=== PATIENT | female | born 1990 | race Caucasian/White ===

== ENCOUNTER 2018-11-13 12:15 | Emergency (ER) | payer SELFPAY ==
[2018-11-13] MEDS ORDERED: Ondansetron 4 MG Tab.DIS PO ONE (12:28)
[2018-11-13] MEDS ORDERED: Ketorolac 60 MG/2 ML SDV IM ONE (12:28)
[2018-11-13] MEDS ORDERED: Albuterol/Ipratropium 3.0-0.5 MG/3 ML Neb Soln NEB ONE (12:29)
[2018-11-13] MEDS ORDERED: Ketorolac 30 MG/ML SDV ONE (12:36)
--- NOTE | 2018-11-13 13:16 | EDM.PDOC ---
ED HPI GENERAL MEDICAL PROBLEM - General Chief Complaint: Gastrointestinal Problem Stated Complaint: STOMACH PAIN Time Seen by Provider: 11/13/18 12:20 Source of Information: Reports: Patient History Limitations: Reports: No Limitations - History of Present Illness INITIAL COMMENTS - FREE TEXT/NARRATIVE: History of present illness: []Patient has had vomiting, diarrhea, cough shortness of breath for 5 days. She states she has been having fevers, chills and sweats. She had symptoms are improving but she still feels bad. Review of systems: As per history of present illness and below otherwise all systems reviewed and negative. Past medical history: As per history of present illness and as reviewed below otherwise noncontributory. Surgical history: As per history of present illness and as reviewed below otherwise noncontributory. Social history: No reported history of drug or alcohol abuse. Family history: As per history of present illness and as reviewed below otherwise noncontributory. Physical exam: General: Well developed, well nourished in NAD HEENT: Atraumatic, normocephalic, pupils reactive, negative for conjunctival pallor or scleral icterus, mucous membranes moist, throat clear, neck supple, nontender, trachea midline. Lungs: Clear to auscultation, breath sounds equal bilaterally, chest nontender. Heart: S1S2, regular, negative for clicks, rubs, or JVD. Abdomen: NABS, Soft, nondistended, nontender. Negative for masses or hepatosplenomegaly. Negative for costovertebral tenderness. Pelvis: Stable nontender. Genitourinary: Deferred. Rectal: Deferred. Extremities: Atraumatic, negative for cords or calf pain. Neurovascular unremarkable. Neuro: Awake, alert, oriented. Cranial nerves II through XII unremarkable. Cerebellum unremarkable. Motor and sensory unremarkable throughout. Exam nonfocal. Skin:warm and dry Diagnostics: CBC, chemistry, chest x-ray, test Therapeutics: DuoNeb Toradol ED Course: Proved Impression: Acute bronchitis Prescriptions: DuoNeb, amoxicillin, Zofran Plan: Take meds as directed, follow up with your primary care physician, return to ER if symptoms worsen or change. Definitive disposition and diagnosis as appropriate pending reevaluation and review of above. Abdominal Pain Score (Numeric/FACES): 4 - Related Data Allergies Allergy/AdvReac Type Severity Reaction Status Date / Time No Known Allergies Allergy Verified 11/13/18 12:21 Home Meds: Home Meds ALPRAZolam [Xanax] 1 tab PO QID PRN 11/13/18 [History] Albuterol [Ventolin HFA] 2 puff INH Q4HR PRN #1 inhaler 11/13/18 [Rx] Amoxicillin 500 mg PO TID #21 capsule 11/13/18 [Rx] Budesonide/Formoterol [Symbicort 160-4.5 MCG] 1 puff INH BID 11/13/18 [History] Levothyroxine 1 tab PO DAILY 11/13/18 [History] Lurasidone HCl [Latuda] 1 tab PO DAILY 11/13/18 [History] Ondansetron HCl [Zofran] 4 mg PO Q4HR #12 tablet 11/13/18 [Rx] Zolpidem Tartrate [Ambien] 1 tab PO BEDTIME PRN 11/13/18 [History] Past Medical History Respiratory History: Reports: Bronchitis, Recurrent Psychiatric History: Reports: Anxiety, Bipolar, Depression Endocrine/Metabolic History: Reports: Hypothyroidism - Infectious Disease History Infectious Disease History: Reports: Chicken Pox Social & Family History - Tobacco Use Smoking Status *Q: Current Every Day Smoker Years of Tobacco use: 5 Packs/Tins Daily: 1 - Recreational Drug Use Recreational Drug Use: Yes Recreational Drug Type: Reports: Marijuana/Hashish Other Recreational Drug Type: has not used in about one month ED ROS GENERAL - Review of Systems Review Of Systems: See Below ED EXAM, GENERAL - Physical Exam Exam: See Below Course - Vital Signs Last Recorded V/S: Last Vital Signs Temp 96.7 F 11/13/18 12:18 Pulse 97 11/13/18 12:18 Resp 20 11/13/18 12:18 BP 133/94 H 11/13/18 12:18 Pulse Ox 98 11/13/18 12:18 - Orders/Labs/Meds Orders: Active Orders 24 hr Category Date Time Status RT Aerosol Therapy [RC] ASDIRECTED Care 11/13/18 12:30 Active Chest 1V Frontal [CR] Stat Exams 11/13/18 12:28 Taken Labs: Laboratory Tests 11/13/18 11/13/18 11/13/18 Range/Units 12:46 12:46 12:46 WBC 10.38 (4.0-11.0) K/uL RBC 5.55 (4.30-5.90) M/uL Hgb 15.1 (12.0-16.0) g/dL Hct 44.9 (36.0-46.0) % MCV 80.9 (80.0-98.0) fL MCH 27.2 (27.0-32.0) pg MCHC 33.6 (31.0-37.0) g/dL RDW Std Deviation 43.5 (28.0-62.0) fl RDW Coeff of Amol 15 (11.0-15.0) % Plt Count 244 (150-400) K/uL MPV 10.10 (7.40-12.00) fL Neut % (Auto) 69.7 (48.0-80.0) % Lymph % (Auto) 20.0 (16.0-40.0) % [place] % (Auto) 9.1 (0.0-15.0) % Eos % (Auto) 1.1 (0.0-7.0) % Baso % (Auto) 0.1 (0.0-1.5) % Neut # (Auto) 7.2 H (1.4-5.7) K/uL Lymph # (Auto) 2.1 (0.6-2.4) K/uL [place] # (Auto) 0.9 H (0.0-0.8) K/uL Eos # (Auto) 0.1 (0.0-0.7) K/uL Baso # (Auto) 0.0 (0.0-0.1) K/uL Nucleated RBC % 0.0 /100WBC Nucleated RBCs # 0 K/uL Sodium 138 (136-145) mmol/L Potassium 3.7 (3.5-5.1) mmol/L Chloride 103 (98-107) mmol/L Carbon Dioxide 21.6 (21.0-32.0) mmol/L BUN 5 L (7.0-18.0) mg/dL Creatinine 0.6 (0.6-1.0) mg/dL Est Cr Clr Drug Dosing 128.98 mL/min Estimated GFR (MDRD) > 60.0 ml/min Glucose 112 H (74-106) mg/dL Calcium 9.2 (8.5-10.1) mg/dL Total Bilirubin 0.5 (0.2-1.0) mg/dL AST 16 (15-37) IU/L ALT 40 (14-63) IU/L Alkaline Phosphatase 75 (46-116) U/L Total Protein 8.3 H (6.4-8.2) g/dL Albumin 4.0 (3.4-5.0) g/dL Globulin 4.3 H (2.6-4.0) g/dL Albumin/Globulin Ratio 0.9 (0.9-1.6) HCG, Qual NEGATIVE (NEG) Meds: Medications Discontinued Medications Generic Name Dose Route Start Last Admin Trade Name Freq PRN Reason Stop Dose Admin Albuterol/Ipratropium 3 ml 11/13/18 12:29 11/13/18 12:54 Duoneb 3.0-0.5 Mg/3 Ml NEB 11/13/18 12:30 3 ml ONETIME ONE Administration Ketorolac Tromethamine 60 mg 11/13/18 12:28 11/13/18 12:38 Toradol IM 11/13/18 12:29 60 mg ONETIME ONE Administration Ketorolac Tromethamine Confirm 11/13/18 12:36 11/13/18 12:47 Toradol Administered 11/13/18 12:37 30 mg Dose Administration 30 mg .ROUTE .STK-MED ONE Ondansetron HCl 4 mg 11/13/18 12:28 11/13/18 12:39 Zofran Odt PO 11/13/18 12:29 4 mg ONETIME ONE Administration Departure - Departure Time of Disposition: 13:16 Disposition: Home, Self-Care 01 Condition: Good Clinical Impression: Acute bronchitis Qualifiers: Bronchitis organism: unspecified organism Qualified Code(s): J20.9 - Acute bronchitis, unspecified - Discharge Information *PRESCRIPTION DRUG MONITORING PROGRAM REVIEWED*: No *COPY OF PRESCRIPTION DRUG MONITORING REPORT IN PATIENT JEANNINE: No Prescriptions: Albuterol [Ventolin HFA] 2 puff INH Q4HR PRN #1 inhaler PRN Reason: Shortness Of Breath Ondansetron HCl [Zofran] 4 mg PO Q4HR #12 tablet Amoxicillin 500 mg PO TID #21 capsule Referrals: PCP,Unknown [Primary Care Provider] - Forms: ED Department Discharge Additional Instructions: The following information is given to patients seen in the emergency department who are being discharged to home. This information is to outline your options for follow-up care. We provide all patients seen in our emergency department with a follow-up referral. The need for follow-up, as well as the timing and circumstances, are variable depending upon the specifics of your emergency department visit. If you don't have a primary care physician on staff, we will provide you with a referral. We always advise you to contact your personal physician following an emergency department visit to inform them of the circumstance of the visit and for follow-up with them and/or the need for any referrals to a consulting specialist. The emergency department will also refer you to a specialist when appropriate. This referral assures that you have the opportunity for follow-up care with a specialist. All of these measure are taken in an effort to provide you with optimal care, which includes your follow-up. Under all circumstances we always encourage you to contact your private physician who remains a resource for coordinating your care. When calling for follow-up care, please make the office aware that this follow-up is from your recent emergency room visit. If for any reason you are refused follow-up, please contact the [facility] Emergency Department at and asked to speak to the emergency department charge nurse. Take meds as directed, follow up with your primary care physician, return to ER if symptoms worsen or change. [facility] [address] [place] [id number] - My Orders Last 24 Hours: My Active Orders 11/13/18 12:28 Chest 1V Frontal [CR] Stat 11/13/18 12:30 RT Aerosol Therapy [RC] ASDIRECTED - Assessment/Plan Last 24 Hours: My Active Orders 11/13/18 12:28 Chest 1V Frontal [CR] Stat 11/13/18 12:30 RT Aerosol Therapy [RC] ASDIRECTED
[2018-11-13 13:19] LABS: CHLORIDE,CL 103 mmol/L (98-107); SODIUM,NA 138 mmol/L (136-145)
--- NOTE | 2018-11-13 14:19 | CR ---
INDICATION: Cough TECHNIQUE: Single view chest. FINDINGS: The lungs are clear. The heart, mediastinum and pulmonary vessels are of normal size. There is no evidence of pleural disease. IMPRESSION: Negative chest. Dictated by Malu Sims MD @ Nov 13 2018 2:15PM Signed by Dr. Malu Sims @ Nov 13 2018 2:18PM
== END 2018-11-13 13:34 | disposition home or self-care (01) ==
LOC: MW.ED 12:15
DX: J20.9 Acute bronchitis, unspecified (principal); F31.9 Bipolar disorder, unspecified; F41.9 Anxiety disorder, unspecified; E03.9 Hypothyroidism, unspecified; Z79.899 Other long term (current) drug therapy; F17.210 Nicotine dependence, cigarettes, uncomplicated
CPT/HCPCS: 36415; 71045; 80053; 84703; 85025; 94640; 96372; 99284; A9270; J1885; 99283; J7620-GY